=== PATIENT | male | born 1935 | race Caucasian/White ===

== ENCOUNTER 2018-02-03 13:32 | Emergency (ER) | payer MEDICARE, OTHER ==
[~2018-02-03] VITALS: Ht 172.7 cm; Wt 90.9 kg
[~2018-02-03 13:32] MED LIST: ASPI81TA52 PO; ATOR40TA72 PO; CHOL10002 PO; DOCU-28 PO; MULT-1179 PO; OMEP20TA23 PO
[2018-02-03 16:33] VITALS: BP 132/68
== END 2018-02-03 16:37 | disposition home or self-care (01) ==
LOC: ER 13:33
DX: M79.662 Pain in left lower leg (principal); Z88.1 Allergy status to other antibiotic agents; Z79.82 Long term (current) use of aspirin; Z79.899 Other long term (current) drug therapy
CPT/HCPCS: 93971; 99284

== ENCOUNTER 2022-03-04 12:40 | Outpatient (CLI) | payer MEDICARE, OTHER | END 2022-03-04 23:59 | disposition home or self-care (01) | LOC: RAD 12:40 | PROVIDERS: ATTEND Internal Medicine Cardiovascular Disease | DX: I08.0 Rheumatic disorders of both mitral and aortic valves (principal); I77.819 Aortic ectasia, unspecified site | CPT/HCPCS: 93306 ==